=== PATIENT | female | born 1965 | race Caucasian/White ===

== ENCOUNTER 2025-03-03 06:49 | Day surgery (SDC) | payer BC ==
[~2025-03-03 06:49] MED LIST: Dexamethasone/Neomycin/Polymyxin B Ophth Oint 3.5 GM Tube ONE; Lidocaine 1% 2 ML ONE; Phenyleprhine/Ketorolac 4 ML Vial ONE; Povidone-Iodine 5% Sterile Ophth Soln 30 ML Bottle ONE
[2025-03-03] MEDS: Cyclopentolate 1% Opth Soln 2 ML Bottle EYERT SCH (07:00)
[2025-03-03] MEDS: Moxifloxacin 0.5% Ophth Soln 3 ML Bottle EYERT ONE ×2 (07:24→08:12)
[2025-03-03] MEDS ORDERED: Midazolam 1 MG/ML 2 ML SDV ONE (07:30)
[2025-03-03] MEDS ORDERED: fentaNYL 100 MCG/2 ML SDV ONE (07:30)
[2025-03-03] MEDS: Povidone-Iodine 5% Sterile Ophth Soln 30 ML Bottle EYERT ONE (08:11)
[2025-03-03] MEDS: Phenyleprhine/Ketorolac 4 ML Vial IOCULAR ONE (08:12)
[2025-03-03] MEDS: Balanced Salt Solution Ophth Irrig 500 ML Bottle IOCULAR ONE (08:12)
[2025-03-03] MEDS: Lidocaine 1% PF 2 ML SDV INFILT ONE (08:12)
[2025-03-03] MEDS: Chondroitin Sulfate/Hyaluronate Sodium Ophth Inj 0.5 ML Syringe IOCULAR ONE (08:13)
[2025-03-03] MEDS: Dexamethasone/Neomycin/Polymyxin B Ophth Oint 3.5 GM Tube EYERT ONE (08:13)
[2025-03-03] MEDS: acetaZOLAMIDE 500 MG Cap.ER PO ONE (08:37)
== END 2025-03-03 08:55 | disposition home or self-care (01) ==
LOC: VM.SDS 06:49
PROVIDERS: ATTEND Ophthalmology
DX: H25.813 Combined forms of age-related cataract, bilateral (principal); I12.9 Hypertensive chronic kidney disease with stage 1 through stage 4 chronic kidney disease, or unspecified chronic kidney disease; N18.31 Chronic kidney disease, stage 3a; E66.813 Obesity, class 3; Z68.43 Body mass index [BMI] 50.0-59.9, adult; Z79.899 Other long term (current) drug therapy
CPT/HCPCS: 66984; A9270; J0690; J1097; J2003; J2250; J3010; 00142; J3490